=== PATIENT | female | born 1940 | race Asian ===

== ENCOUNTER → 2016-12-24 | Outpatient (CLI) | payer OTHER, MEDICARE ==
[~2016-12-24] MED LIST: AMIO200T42 PO; LISI-170 PO; METF850T2 PO; METO25TA35 PO; NIFE30TA15 PO; OMEP-110 PO; Pantoprazole Sodium PO; SUCR1TAB33 PO
== END | disposition home or self-care (01) ==
LOC: CFH 10:58
PROVIDERS: ATTEND Internal Medicine
DX: E78.2 Mixed hyperlipidemia (principal); I10 Essential (primary) hypertension; I35.0 Nonrheumatic aortic (valve) stenosis; I48.0 Paroxysmal atrial fibrillation
CPT/HCPCS: 71020

== ENCOUNTER 2017-06-03 08:30 | Inpatient (IN) | payer OTHER, MEDICARE ==
[~2017-06-03] VITALS: Ht 152.4 cm; Wt 68.1 kg
[2017-06-03 09:19] VITALS: BP 174/99
[2017-06-03] MEDS ORDERED: VALS1TAB30 PO (09:40)
[2017-06-03] MEDS ORDERED: AMLO10TA2 PO (09:40)
[2017-06-03] MEDS ORDERED: CARV25TA12 PO (09:40)
[2017-06-03 09:55] VITALS: BP 174/99
[2017-06-03] MEDS ORDERED: PLEASE ENTER HEIGHT AND WEIGHT MC SCH (10:00)
[2017-06-03 10:40] LABS: ANION GAP 8 mmol/L (5-15); CALCIUM 8.3 mg/dL (8.5-10.1); CHLORIDE 110 mmol/L (98-107); CREATININE 1.25 mg/dL (0.55-1.02)
[2017-06-03 10:46] LABS: CHOLESTEROL, TOTAL 184 mg/dL (140-239); FREE T4 (FREE THYROXINE) 1.51 ng/dL (0.76-1.46); HDL CHOL % 33 % (28-40); HDL CHOLESTEROL (DIRECT) 61 mg/dL (40-60); LDL CHOLESTEROL,CALCULATED 111 mg/dL (54-169); LDL/HDL RATIO 1.8 (0.5-3.0); TRIGLYCERIDES 59 mg/dL (50-200); TROPONIN I < 0.015 ng/mL (0.000-0.045); VLDL CHOLESTEROL 12 mg/dL (0-25)
[2017-06-03] MEDS: APIXABAN 5 MG TABLET PO SCH ×2 (11:25→21:54)
[2017-06-03] MEDS: metFORMIN XR 500 MG TAB.ER.24H PO SCH (11:25)
[2017-06-03] MEDS: AMIODARONE 200 MG TABLET PO SCH ×3 (11:27→21:54)
[2017-06-03 14:00] VITALS: BP 138/78
[2017-06-03] MEDS ORDERED: POTASSIUM CHLORIDE 20 MEQ TAB.ER.PRT PO ONE (14:00)
[2017-06-03 15:52] LABS: TROPONIN I < 0.015 ng/mL (0.000-0.045)
[2017-06-03] MEDS ORDERED: AMIODARONE 200 MG TABLET PO SCH (16:00)
[2017-06-03] MEDS: CARVEDILOL 25 MG TABLET PO SCH (17:32)
[2017-06-03 21:37] LABS: TROPONIN I < 0.015 ng/mL (0.000-0.045)
[2017-06-03 21:54] VITALS: BP 116/78
[2017-06-03] MEDS: ATORVASTATIN 20 MG TABLET PO SCH (21:54)
[2017-06-04] VITALS (8 sets, daily range): BP systolic 85–149; BP diastolic 46–85
[2017-06-04] MEDS: CARVEDILOL 25 MG TABLET PO SCH ×2 (06:07→17:36)
[2017-06-04] MEDS: OMEPRAZOLE 20 MG CAPSULE.DR PO SCH (08:27)
[2017-06-04] MEDS: metFORMIN XR 500 MG TAB.ER.24H PO SCH (08:28)
[2017-06-04] MEDS: AMIODARONE 200 MG TABLET PO SCH ×2 (08:28→20:32)
[2017-06-04] MEDS: APIXABAN 5 MG TABLET PO SCH ×2 (08:28→20:32)
[2017-06-04 08:41] LABS: ANION GAP 8 mmol/L (5-15); CALCIUM 8.5 mg/dL (8.5-10.1); CHLORIDE 110 mmol/L (98-107); CREATININE 1.44 mg/dL (0.55-1.02)
[2017-06-04] MEDS: VALSARTAN 320 MG TABLET PO SCH (09:00)
[2017-06-04] MEDS: HYDROCHLOROTHIAZIDE 25 MG TABLET PO SCH (09:00)
[2017-06-04] MEDS: AMLODIPINE 5 MG TABLET PO SCH (09:00)
[2017-06-04] MEDS: ATORVASTATIN 20 MG TABLET PO SCH (20:32)
[2017-06-05] VITALS (7 sets, daily range): BP systolic 101–146; BP diastolic 27–76
[2017-06-05 04:52] LABS: BASOPHILS # (AUTO) 0.05 x10^3/uL (0-0.1); BASOPHILS % (AUTO) 1 % (0-1); EOSINOPHILS % (AUTO) 3 % (1-7); LYMPHOCYTES # (AUTO) 1.86 x10^3/uL (1-3.4); LYMPHOCYTES % (AUTO) 22 % (22-44); MD NO; MEAN CORPUSCULAR HEMOGLOBIN 29.8 pg (27.0-34.8); MEAN CORPUSCULAR HGB CONC 32.8 g/dL (32.4-35.8); MEAN PLATELET VOLUME 7.8 fL (7.4-10.4); MONOCYTES # (AUTO) 0.79 x10^3/uL (0.2-0.8); MONOCYTES % (AUTO) 10 % (2-9); NEUTROPHILS # (AUTO) 5.39 x10^3/uL (1.8-6.8); NEUTROPHILS % (AUTO) 65 % (42-75); PLATELET COUNT 205 x10^3/uL (130-400); RED BLOOD COUNT 3.83 x10^6/uL (3.82-5.3); RED CELL DISTRIBUTION WIDTH 13.9 % (9.6-15.2)
[2017-06-05 04:59] LABS: ANION GAP 8 mmol/L (5-15); CALCIUM 8.7 mg/dL (8.5-10.1); CHLORIDE 112 mmol/L (98-107); CREATININE 1.96 mg/dL (0.55-1.02)
[2017-06-05] MEDS: CARVEDILOL 25 MG TABLET PO SCH ×2 (06:32→17:27)
[2017-06-05] MEDS: OMEPRAZOLE 20 MG CAPSULE.DR PO SCH (06:33)
[2017-06-05] MEDS: metFORMIN XR 500 MG TAB.ER.24H PO SCH (08:41)
[2017-06-05] MEDS: VALSARTAN 320 MG TABLET PO SCH (08:42)
[2017-06-05] MEDS: HYDROCHLOROTHIAZIDE 25 MG TABLET PO SCH (08:42)
[2017-06-05] MEDS: AMIODARONE 200 MG TABLET PO SCH (08:42)
[2017-06-05] MEDS: APIXABAN 5 MG TABLET PO SCH ×2 (08:42→20:24)
[2017-06-05] MEDS: AMLODIPINE 5 MG TABLET PO SCH (08:42)
[2017-06-05] MEDS ORDERED: SODIUM CHLORIDE 0.9% 500 ML IV SCH (10:30)
[2017-06-05] MEDS: SODIUM CHLORIDE 0.9% 500 ML IV SCH ×3 (10:39→20:27)
[2017-06-05] MEDS: ATORVASTATIN 20 MG TABLET PO SCH (20:24)
[2017-06-06] VITALS (7 sets, daily range): BP systolic 92–129; BP diastolic 41–77
[2017-06-06] MEDS: SODIUM CHLORIDE 0.9% 500 ML IV SCH ×2 (02:31→08:59)
[2017-06-06 05:01] LABS: ANION GAP 7 mmol/L (5-15); CALCIUM 8.3 mg/dL (8.5-10.1); CHLORIDE 113 mmol/L (98-107); CREATININE 1.71 mg/dL (0.55-1.02)
[2017-06-06] MEDS: CARVEDILOL 25 MG TABLET PO SCH (05:59)
[2017-06-06] MEDS: OMEPRAZOLE 20 MG CAPSULE.DR PO SCH (08:59)
[2017-06-06] MEDS: HYDROCHLOROTHIAZIDE 25 MG TABLET PO SCH (09:00)
[2017-06-06] MEDS: AMLODIPINE 5 MG TABLET PO SCH (09:00)
[2017-06-06] MEDS: APIXABAN 5 MG TABLET PO SCH (09:00)
[2017-06-06] MEDS ORDERED: AMIODARONE 200 MG TABLET PO SCH (09:00)
[2017-06-06] MEDS: VALSARTAN 320 MG TABLET PO SCH (09:01)
[2017-06-06] MEDS ORDERED: OMEP-110 PO (13:53)
[2017-06-06] MEDS ORDERED: ATOR20TA9 PO (13:53)
[2017-06-06] MEDS ORDERED: AMIO200T42 PO (13:53)
[2017-06-06] MEDS ORDERED: APIX5TAB PO (13:53)
== END 2017-06-06 16:34 | disposition home or self-care (01) | DRG 309 ==
LOC: 5SO 08:54
PROVIDERS: ADMIT Internal Medicine Cardiovascular Disease; ATTEND Internal Medicine Cardiovascular Disease
DX: I48.0 Paroxysmal atrial fibrillation (principal); D68.69 Other thrombophilia; I42.9 Cardiomyopathy, unspecified; E11.9 Type 2 diabetes mellitus without complications; I35.0 Nonrheumatic aortic (valve) stenosis; I10 Essential (primary) hypertension; E87.6 Hypokalemia; E78.5 Hyperlipidemia, unspecified; Z87.891 Personal history of nicotine dependence; R00.1 Bradycardia, unspecified; Z87.01 Personal history of pneumonia (recurrent)
CPT/HCPCS: 36415; 71046; 80048; 80061; 84439; 84443; 84484; 85014; 85018; 85025; 93005; 93306; J7040

== ENCOUNTER → 2018-06-02 | Outpatient (CLI) | payer OTHER, MEDICARE ==
[~2018-06-02] MED LIST changes: +AMLO10TA8 PO; +APIX5TAB PO; +ATOR20TA37 PO; +CARV25TA12 PO; +METF850T10 PO; -METF850T2 PO; +VALS1TAB30 PO
== END | disposition home or self-care (01) ==
LOC: CFH 09:54
PROVIDERS: ATTEND Internal Medicine Cardiovascular Disease
DX: Z79.01 Long term (current) use of anticoagulants (principal)
CPT/HCPCS: 71046

== ENCOUNTER → 2018-12-08 | Outpatient (CLI) | payer OTHER, MEDICARE | END | disposition home or self-care (01) | LOC: CFH 09:30 | PROVIDERS: ATTEND Internal Medicine Cardiovascular Disease | DX: I08.8 Other rheumatic multiple valve diseases (principal); E11.9 Type 2 diabetes mellitus without complications; I11.0 Hypertensive heart disease with heart failure; E78.5 Hyperlipidemia, unspecified | CPT/HCPCS: 93306 ==

== ENCOUNTER 2018-12-30 11:26 | Outpatient (CLI) | payer OTHER, MEDICARE ==
[~2018-12-30 11:26] MED LIST changes: +ERGO500017 PO; +GLIM2TAB3 PO; +METF500T17 PO; +VALS1TAB15 PO; +VALS1TAB3 PO
== END 2018-12-30 23:59 | disposition home or self-care (01) ==
LOC: RAD 11:26
PROVIDERS: ATTEND Internal Medicine Cardiovascular Disease
DX: I35.0 Nonrheumatic aortic (valve) stenosis (principal); I65.23 Occlusion and stenosis of bilateral carotid arteries; I70.0 Atherosclerosis of aorta; I25.10 Atherosclerotic heart disease of native coronary artery without angina pectoris; I10 Essential (primary) hypertension; E11.9 Type 2 diabetes mellitus without complications; I50.9 Heart failure, unspecified; K44.9 Diaphragmatic hernia without obstruction or gangrene; E27.8 Other specified disorders of adrenal gland; K57.30 Diverticulosis of large intestine without perforation or abscess without bleeding; M25.78 Osteophyte, vertebrae; M47.815 Spondylosis without myelopathy or radiculopathy, thoracolumbar region
CPT/HCPCS: 71250; 74176; 93880

== ENCOUNTER 2019-01-13 07:03 | Inpatient (IN) | payer OTHER, MEDICARE ==
[~2019-01-13] VITALS: Ht 152.4 cm; Wt 65.7 kg
[~2019-01-13 07:03] MED LIST changes: +CHLORHEXIDINE 15 ML UDC ONE
[2019-01-13] MEDS ORDERED: SODIUM CHLORIDE 0.9% 1,000 ML IV ONE (08:07)
[2019-01-13] MEDS ORDERED: CHLORHEXIDINE 15 ML UDC MM PRN (08:30)
[2019-01-13] MEDS ORDERED: PLEASE ENTER HEIGHT AND WEIGHT MC SCH (08:30)
[2019-01-13] MEDS ORDERED: ONDANSETRON 2MG/ML, 2ML IVPush PRN ×2 (08:30→12:00)
[2019-01-13 08:47] LABS: BASOPHILS # (AUTO) 0.07 x10^3/uL (0-0.1); BASOPHILS % (AUTO) 1 % (0-1); EOSINOPHILS # (AUTO) 0.41 x10^3/uL (0-0.4); EOSINOPHILS % (AUTO) 6 % (1-7); LYMPHOCYTES % (AUTO) 24 % (22-44); MD NO; MEAN CORPUSCULAR HEMOGLOBIN 29.8 pg (27.0-34.8); MEAN CORPUSCULAR HGB CONC 32.4 g/dL (32.4-35.8); MEAN CORPUSCULAR VOLUME 91.8 fL (80-100); MEAN PLATELET VOLUME 8.7 fL (7.4-10.4); MONOCYTES % (AUTO) 13 % (2-9); NEUTROPHILS # (AUTO) 3.56 x10^3/uL (1.8-6.8); NEUTROPHILS % (AUTO) 56 % (42-75); PLATELET COUNT 111 x10^3/uL (130-400); RED BLOOD COUNT 4.14 x10^6/uL (3.82-5.3); RED CELL DISTRIBUTION WIDTH 14.4 % (9.6-15.2)
[2019-01-13 08:55] LABS: ANION GAP 7 mmol/L (5-15); CALCIUM 8.9 mg/dL (8.5-10.1); CHLORIDE 113 mmol/L (98-107)
[2019-01-13 08:56] LABS: ALBUMIN 3.2 g/dL (3.4-5.0); INTERNATIONAL NORMALIZED RATIO 0.96 (0.93-1.1); PROTHROMBIN TIME 10.1 Seconds (9.6-11.5)
[2019-01-13 08:59] LABS: ALANINE AMINOTRANSFERASE 23 U/L (12-78); ALKALINE PHOSPHATASE 70 U/L (45-117); BILIRUBIN,TOTAL 0.8 mg/dL (0.2-1.0); CREATININE 2.16 mg/dL (0.55-1.02); TOTAL PROTEIN 7.9 g/dL (6.4-8.2)
[2019-01-13] MEDS ORDERED: FENTANYL PF 250 MCG/5ML ONE (10:38)
[2019-01-13] MEDS ORDERED: ROCURONIUM 10MG/ML,5ML ONE (10:40)
[2019-01-13] MEDS ORDERED: SUCCINYLCHOLINE 20 MG/ML, 10ML ONE (10:40)
[2019-01-13] MEDS ORDERED: HEPARIN 1,000 UNITS/ML, 10ML ONE (10:40)
[2019-01-13] MEDS ORDERED: PROPOFOL 10 MG/ML, 20ML ONE (10:40)
[2019-01-13] MEDS ORDERED: PHENYLEPHRINE 10 MG/ML ONE (10:44)
[2019-01-13] MEDS ORDERED: ONDANSETRON 2MG/ML, 2ML ONE (10:44)
[2019-01-13] MEDS ORDERED: ALBUTEROL HFA 90 MCG/SPRAY ONE (10:44)
[2019-01-13] MEDS ORDERED: CEFAZOLIN 1,000 MG ONE (10:44)
[2019-01-13] MEDS ORDERED: PROTAMINE SULFATE 10 MG/ML, 25ML ONE (11:40)
[2019-01-13] MEDS ORDERED: CLOPIDOGREL 300 MG TABLET PO ONE (12:00)
[2019-01-13] MEDS ORDERED: DEXTROSE 50%, 50ML SYRINGE IVPush PRN (12:00)
[2019-01-13] MEDS ORDERED: GLUCAGON 1 MG IM PRN (12:00)
[2019-01-13] MEDS ORDERED: hydrALAzine 20 MG/ML, 1ML IVPush PRN (12:00)
[2019-01-13] MEDS ORDERED: ACETAMINOPHEN 325 MG TABLET PO PRN (12:00)
[2019-01-13] MEDS ORDERED: ERGOCALCIFEROL 50,000 UNIT CAPSULE PO SCH (12:00)
[2019-01-13] MEDS ORDERED: DEXTROSE 4 GM TAB.CHEW PO PRN (12:00)
[2019-01-13] MEDS ORDERED: LABETALOL 20 MG/4 ML IVPush PRN (12:00)
[2019-01-13] MEDS ORDERED: SODIUM CHLORIDE 0.9% 1,000 ML IV SCH (12:30)
[2019-01-13] MEDS: SODIUM CHLORIDE 0.9% 1,000 ML IV SCH ×2 (12:31→18:30)
[2019-01-13] MEDS ORDERED: EPHEDRINE 50 MG/ML, 1ML IM ONE (14:00)
[2019-01-13 15:01] VITALS: BP 112/59
[2019-01-13 19:43] VITALS: BP 113/61
[2019-01-13 20:52] VITALS: BP 105/46
[2019-01-13] MEDS: CARVEDILOL 25 MG TABLET PO SCH (20:52)
[2019-01-13] MEDS: SODIUM CHLORIDE FLUSH 10ML SYR IVF SCH (20:54)
[2019-01-13] MEDS ORDERED: ATORVASTATIN 20 MG TABLET PO SCH (21:00)
[2019-01-13] MEDS ORDERED: CARVEDILOL 25 MG TABLET PO SCH (21:00)
[2019-01-14] MEDS: SODIUM CHLORIDE 0.9% 1,000 ML IV SCH ×3 (01:13→08:26)
[2019-01-14 01:18] VITALS: BP 133/65
[2019-01-14 05:12] LABS: ANION GAP 8 mmol/L (5-15); CALCIUM 7.6 mg/dL (8.5-10.1); CHLORIDE 117 mmol/L (98-107)
[2019-01-14 05:14] LABS: CREATININE 1.83 mg/dL (0.55-1.02)
[2019-01-14 06:02] LABS: MEAN CORPUSCULAR HEMOGLOBIN 30.4 pg (27.0-34.8); MEAN CORPUSCULAR HGB CONC 32.9 g/dL (32.4-35.8); MEAN CORPUSCULAR VOLUME 92.4 fL (80-100); PLATELET COUNT 110 x10^3/uL (130-400); RED BLOOD COUNT 3.45 x10^6/uL (3.82-5.3); RED CELL DISTRIBUTION WIDTH 14.1 % (9.6-15.2)
[2019-01-14 06:03] LABS: BASOPHILS # (AUTO) 0.01 x10^3/uL (0-0.1); BASOPHILS % (AUTO) 0 % (0-1); EOSINOPHILS % (AUTO) 0 % (1-7); LYMPHOCYTES # (AUTO) 0.57 x10^3/uL (1-3.4); LYMPHOCYTES % (AUTO) 8 % (22-44); MD SCAN; MONOCYTES # (AUTO) 0.21 x10^3/uL (0.2-0.8); MONOCYTES % (AUTO) 3 % (2-9); NEUTROPHILS # (AUTO) 6.16 x10^3/uL (1.8-6.8); NEUTROPHILS % (AUTO) 89 % (42-75)
[2019-01-14] MEDS ORDERED: OMEPRAZOLE 20 MG CAPSULE.DR PO SCH (07:30)
[2019-01-14 08:00] VITALS: BP 119/84
[2019-01-14] MEDS: SODIUM CHLORIDE FLUSH 10ML SYR IVF SCH (08:01)
[2019-01-14] MEDS: CARVEDILOL 25 MG TABLET PO SCH (08:01)
[2019-01-14] MEDS ORDERED: HYDROCHLOROTHIAZIDE 12.5 MG CAPSULE PO SCH (09:00)
[2019-01-14] MEDS ORDERED: ASPIRIN 81 MG TABLET EC PO SCH (09:00)
[2019-01-14] MEDS ORDERED: AMLODIPINE 10 MG TAB PO SCH (09:00)
[2019-01-14] MEDS ORDERED: VALSARTAN 320 MG TABLET PO SCH (09:00)
[2019-01-14] MEDS ORDERED: AMIODARONE 200 MG TABLET PO SCH (09:00)
[2019-01-14] MEDS ORDERED: CLOPIDOGREL 75 MG TABLET PO SCH (09:00)
[2019-01-14] MEDS ORDERED: GLIMEPIRIDE 1 MG TABLET PO SCH (09:00)
[2019-01-14] MEDS ORDERED: CLOP75TA PO (10:12)
[2019-01-14] MEDS ORDERED: VALS1TAB15 PO (10:12)
[2019-01-14] MEDS ORDERED: ATOR20TA37 PO (10:12)
[2019-01-14] MEDS ORDERED: ASPI81TA45 PO (10:12)
[2019-01-14] MEDS ORDERED: ACET325T26 PO (10:12)
[2019-01-14] MEDS ORDERED: GLIM2TAB3 PO (10:15)
== END 2019-01-14 13:35 | disposition home or self-care (01) | DRG 266 ==
LOC: ORIP 07:03 → CCU 12:10 → 5SO 14:57 → DCLOUNGE 01-14 13:13
PROVIDERS: ADMIT Internal Medicine Cardiovascular Disease; ATTEND Internal Medicine Cardiovascular Disease
PROC: 03HY32Z Insertion of Monitoring Device into Upper Artery, Percutaneous Approach (ICD-10-PCS; 2019-01-13)
PROC: B310YZZ Fluoroscopy of Thoracic Aorta using Other Contrast (ICD-10-PCS; 2019-01-13)
PROC: B24BZZ4 Ultrasonography of Heart with Aorta, Transesophageal (ICD-10-PCS; 2019-01-13)
PROC: 02RF38Z Replacement of Aortic Valve with Zooplastic Tissue, Percutaneous Approach (ICD-10-PCS; principal; 2019-01-13 11:30)
DX: I35.0 Nonrheumatic aortic (valve) stenosis (principal); Z00.6 Encounter for examination for normal comparison and control in clinical research program; I50.33 Acute on chronic diastolic (congestive) heart failure; I13.0 Hypertensive heart and chronic kidney disease with heart failure and stage 1 through stage 4 chronic kidney disease, or unspecified chronic kidney disease; E11.22 Type 2 diabetes mellitus with diabetic chronic kidney disease; I07.1 Rheumatic tricuspid insufficiency; I27.20 Pulmonary hypertension, unspecified; I48.0 Paroxysmal atrial fibrillation; N18.3 Chronic kidney disease, stage 3 (moderate); Z79.84 Long term (current) use of oral hypoglycemic drugs; Z87.11 Personal history of peptic ulcer disease; Z79.01 Long term (current) use of anticoagulants
CPT/HCPCS: 33361; 36415; 80048; 80053; 85025; 85347; 85610; 85730; 86850; 86900; 86923; 87081; 93005; 93306; 93312; 93321; 93325; 93355; C1760; C1769; C1894; G0378; J0690; J1644; J2405; J2704; J2720; J3010; J0330; J2370; J7030; Q9967

== ENCOUNTER 2019-02-16 12:15 | Outpatient (CLI) | payer OTHER, MEDICARE ==
[~2019-02-16 12:15] MED LIST changes: +ACET325T26 PO; +ASPI81TA45 PO; -CHLORHEXIDINE 15 ML UDC ONE; +CLOP75TA PO; -GLIM2TAB3 PO; +GLIM2TAB7 PO; +NIFE-7 PO; -NIFE30TA15 PO
== END 2019-02-16 23:59 | disposition home or self-care (01) ==
LOC: CVU 12:15
PROVIDERS: ATTEND Internal Medicine Cardiovascular Disease
DX: I08.8 Other rheumatic multiple valve diseases (principal); I65.29 Occlusion and stenosis of unspecified carotid artery
CPT/HCPCS: 93306; 93356

== ENCOUNTER → 2020-01-19 | Outpatient (CLI) | payer MEDICARE, OTHER ==
[~2020-01-19] MED LIST changes: +AMLO-211 PO; -AMLO10TA8 PO
== END | disposition home or self-care (01) ==
LOC: CVU 15:11
PROVIDERS: ATTEND Internal Medicine Cardiovascular Disease
DX: I08.8 Other rheumatic multiple valve diseases (principal); E11.9 Type 2 diabetes mellitus without complications; I65.29 Occlusion and stenosis of unspecified carotid artery; I11.9 Hypertensive heart disease without heart failure; E78.5 Hyperlipidemia, unspecified; Z95.2 Presence of prosthetic heart valve
CPT/HCPCS: 93306

== ENCOUNTER → 2020-02-29 | Outpatient (CLI) | payer MEDICARE | END | disposition home or self-care (01) | LOC: CVU 08:35 | PROVIDERS: ATTEND Internal Medicine Cardiovascular Disease | DX: I08.8 Other rheumatic multiple valve diseases (principal); I11.9 Hypertensive heart disease without heart failure; E78.5 Hyperlipidemia, unspecified; E11.9 Type 2 diabetes mellitus without complications; Z95.4 Presence of other heart-valve replacement | CPT/HCPCS: 93306; 93356 ==

== ENCOUNTER → 2020-05-03 | Outpatient (CLI) | payer MEDICARE, MEDICAID | END | disposition home or self-care (01) | LOC: RAD 14:54 | PROVIDERS: ATTEND Internal Medicine Cardiovascular Disease | DX: I10 Essential (primary) hypertension (principal); M41.84 Other forms of scoliosis, thoracic region; I48.0 Paroxysmal atrial fibrillation; I35.0 Nonrheumatic aortic (valve) stenosis; E11.9 Type 2 diabetes mellitus without complications | CPT/HCPCS: 71046 ==